=== PATIENT | female | born 1975 | race Native Hawaiian/Other Pacific Islander ===

== ENCOUNTER 2020-05-08 08:50 | Emergency (ER) | payer OTHER ==
[~2020-05-08] VITALS: Ht 175.3 cm; Wt 90.7 kg
[2020-05-08 09:33] LABS: PLATELET COUNT 187 K/uL (152-353)
[2020-05-08 09:38] LABS: POTASSIUM 3.6 mmol/L (3.6-5.2); SODIUM 138 mmol/L (136-145)
[2020-05-08 11:30] VITALS: TEMP 98
[2020-05-08 12:26] VITALS: BP 107/67
== END 2020-05-08 12:30 | disposition home or self-care (01) ==
LOC: ED 08:51
PROVIDERS: Family Medicine
DX: R56.9 Unspecified convulsions (principal); R51.9 Headache, unspecified; Z03.818 Encounter for observation for suspected exposure to other biological agents ruled out
CPT/HCPCS: 80053; 80307; 81000; 84484; 85027; 85379; 87635; 93005; 99283; U0003